=== PATIENT | male | born 1960 ===

== ENCOUNTER 2024-02-09 12:19 | Emergency (ER) | payer BC ==
[~2024-02-09] VITALS: Ht 185.4 cm; Wt 122.5 kg
[~2024-02-09 12:19] MED LIST: ALLO100 PO; CO Q10; DICLOFENAC SOD100 G1 PO; Garlic1 EAC1 PO; LOSARTAN POTAS100 MG PO; NITR.4SL SL; OMEPRAZOLE MAGN20 MG PO; TEMA15 PO; TOCO1000 PO
[2024-02-09 13:03] VITALS: BP 175/101
[2024-02-09] MEDS ORDERED: Cyclobenzaprine HCl 10 MG Tab PO ONE (14:10)
[2024-02-09] MEDS ORDERED: Lidocaine 4% 1 Patch TOP ONE (14:10)
[2024-02-09] MEDS ORDERED: Ketorolac Tromethamine 30mg Vial IM ONE (14:10)
[2024-02-09] MEDS ORDERED: Acetaminophen 325 MG TABLET PO ONE (14:10)
[2024-02-09] MEDS ORDERED: OxyCODONE 5 mg/Acetamin 325 mg TABLET PO ONE (15:35)
[2024-02-09] MEDS ORDERED: Percocet 5-3251 EACH PO ×2 (15:45→16:05)
[2024-02-09] MEDS ORDERED: CYCL10 PO ×2 (15:45→16:05)
== END 2024-02-09 15:57 | disposition home or self-care (01) ==
LOC: ER 12:19
DX: M43.16 Spondylolisthesis, lumbar region (principal); M51.16 Intervertebral disc disorders with radiculopathy, lumbar region; W18.30XA Fall on same level, unspecified, initial encounter; Z87.891 Personal history of nicotine dependence
CPT/HCPCS: 72100; 96372; 99283-25; A9270; J1885

== ENCOUNTER 2025-06-10 14:56 | Emergency (ER) | payer BC ==
[~2025-06-10] VITALS: Ht 185.4 cm; Wt 124.7 kg
[~2025-06-10 14:56] MED LIST changes: +CYCL10 PO; +Percocet 5-3251 EACH PO
[2025-06-10 15:07] VITALS: BP 184/100
[2025-06-10] MEDS ORDERED: CELE100 PO (17:38)
[2025-06-10] MEDS ORDERED: ALLO100 PO (17:38)
== END 2025-06-10 18:08 | disposition home or self-care (01) ==
LOC: ER 14:56
DX: M10.9 Gout, unspecified (principal); I10 Essential (primary) hypertension; I25.2 Old myocardial infarction; I25.10 Atherosclerotic heart disease of native coronary artery without angina pectoris; E78.00 Pure hypercholesterolemia, unspecified; K21.9 Gastro-esophageal reflux disease without esophagitis; Z95.1 Presence of aortocoronary bypass graft; Z87.891 Personal history of nicotine dependence; Z79.1 Long term (current) use of non-steroidal anti-inflammatories (NSAID); Z79.899 Other long term (current) drug therapy
CPT/HCPCS: 73140; 99283-25